=== PATIENT | female | born 2000 | race Caucasian/White ===

== ENCOUNTER 2023-12-11 14:15 | Inpatient (IN) | payer OTHER ==
[2023-12-11] MEDS: ELECTROLYTE-148 SOLN 1,000 ML IV SCH (14:30)
[2023-12-11] MEDS: AMPICILLIN SODIUM 2 GM VIAL IVPB ONE (14:35)
[2023-12-11] MEDS ORDERED: AMPICILLIN SODIUM 2 GM VIAL ONE (16:32)
[2023-12-11 16:57] VITALS: BMI 30.8
[2023-12-11 17:30] LABS: BASO % 0.4 % (0-2.0); EOS % 0.4 % (0-4.5); HEMATOCRIT 38.7 % (32.4-45.2); HEMOGLOBIN 12.6 GM/dL (10.7-15.3); LYMPH % 18.1 % (8-40); MCH 28.5 pg (25.7-33.7); MCHC 32.4 g/dl (32.0-36.0); MEAN CELL VOLUME 87.8 fl (80-96); MONO % 9.8 % (3.8-10.2); NEUT % 71.3 % (42.8-82.8); PLATELET COUNT 222 10^3/uL (134-434); RBC 4.41 M/mm3 (3.60-5.2); RDW 18.5 % (11.6-15.6); WHITE BLOOD COUNT 7.7 K/mm3 (4.0-10.0)
[2023-12-11 17:48] LABS: INR 0.86 (0.83-1.09); PROTHROMBIN TIME (PATIENT) 9.9 SEC (9.7-13.0)
[2023-12-11 17:51] LABS: ACTIVATED PTT 27.6 SECONDS (25.2-36.5)
[2023-12-11 18:21] LABS: CALCIUM 9.4 mg/dL (8.5-10.1)
[2023-12-11 18:22] LABS: BLOOD UREA NITROGEN 11.1 mg/dL (7-18)
[2023-12-11 18:25] LABS: CREATININE 0.6 mg/dL (0.55-1.3)
[2023-12-11] MEDS: AMPICILLIN - 1 GM in SODIUM CHLORIDE 100 ML IVPB SCH (18:40)
[2023-12-11] MEDS ORDERED: AMPICILLIN SODIUM 1 GM VIAL ONE ×2 (18:47→22:32)
[2023-12-11 19:16] LABS: HIV INTERPRETATION NEGATIVE (NEGATIVE)
[2023-12-11] MEDS ORDERED: PROMETHAZINE HCL 25 MG/1 ML VIAL ONE (21:03)
[2023-12-11] MEDS ORDERED: BUTORPHANOL TARTRATE 2 MG/ML VIAL ONE (21:03)
[2023-12-11] MEDS: BUTORPHANOL TARTRATE 2 MG/ML VIAL IVPB ONE (21:09)
[2023-12-11] MEDS: PROMETHAZINE HCL 25 MG/1 ML VIAL IVPB ONE (21:09)
[2023-12-12] MEDS ORDERED: FENTANYL/BUPIVACAINE/NS/PF - PCEA - 50 ML DISP.SYRIN EP ONE ×4 (02:02→15:57)
[2023-12-12] MEDS: FENTANYL/BUPIVACAINE/NS/PF - PCEA - 50 ML DISP.SYRIN EP SCH (02:35)
[2023-12-12] MEDS ORDERED: NALOXONE HCL 0.4 MG/ML VIAL IVPUSH PRN (02:40)
[2023-12-12 05:05] VITALS: RESP 18
[2023-12-12] MEDS ORDERED: AMPICILLIN SODIUM 1 GM VIAL ONE ×4 (06:06→14:13)
[2023-12-12] MEDS ORDERED: BUPIVACAINE HCL/PF 0.25% (2.5MG/ML) 10 ML VIAL ONE (09:11)
[2023-12-12] MEDS ORDERED: OXYTOCIN 30 UNITS in 0.9% NS 30 UNIT/500 ML INFUS.BAG IVPB ONE (13:04)
[2023-12-12] MEDS ORDERED: OXYTOCIN 20 UNITS in 0.9% NS 20 UNIT/1,000 ML INFUS.BAG IV ONE (13:05)
[2023-12-12] MEDS: OXYTOCIN 30 UNITS in 0.9% NS 30 UNIT/500 ML INFUS.BAG IVPB SCH (13:30)
[2023-12-12] MEDS ORDERED: LIDOCAINE HCL 1% PRESERVATIVE FREE - 30ML VIAL ONE (17:27)
[2023-12-12] MEDS: OXYTOCIN 20 UNITS in 0.9% NS 20 UNIT/1,000 ML INFUS.BAG IV SCH (17:30)
[2023-12-12] MEDS ORDERED: WITCH HAZEL 50% (TUCKS) 40 PAD/JAR PAD TP PRN (17:55)
[2023-12-12] MEDS ORDERED: BISACODYL 10 MG SUPP.RECT RC PRN (17:55)
[2023-12-12] MEDS ORDERED: METHYLERGONOVINE MALEATE 0.2 MG/1 ML AMP IM PRN (17:55)
[2023-12-12] MEDS ORDERED: ACETAMINOPHEN 325 MG TABLET (FP) PO PRN (17:55)
[2023-12-12] MEDS ORDERED: BENZOCAINE 28 GM HEMORRHOIDAL OINTMENT TP PRN (17:55)
[2023-12-12] MEDS ORDERED: oxyCODONE HCL 5 MG TABLET PO PRN (17:55)
[2023-12-12] MEDS ORDERED: IBUPROFEN 600 MG TABLET (FP) PO ONE (19:52)
[2023-12-12] MEDS: IBUPROFEN 600 MG TABLET (FP) PO PRN (19:54)
[2023-12-13] MEDS: BENZOCAINE 20% 57 GM BOTTLE TP PRN (00:30)
[2023-12-13 07:49] LABS: BASO % 0.5 % (0-2.0); HEMATOCRIT 33.1 % (32.4-45.2); HEMOGLOBIN 10.9 GM/dL (10.7-15.3); LYMPH % 17.9 % (8-40); MCHC 33.1 g/dl (32.0-36.0); MEAN CELL VOLUME 87.6 fl (80-96); MEAN PLT VOLUME 10.2 fl (7.5-11.1); MONO % 11.5 % (3.8-10.2); NEUT % 69.1 % (42.8-82.8); PLATELET COUNT 175 10^3/uL (134-434); RBC 3.78 M/mm3 (3.60-5.2); RDW 18.7 % (11.6-15.6); WHITE BLOOD COUNT 10.3 K/mm3 (4.0-10.0)
[2023-12-13] MEDS: FERROUS SO4 325 MG TABLET (FP) PO SCH (09:11)
[2023-12-13] MEDS: PRENATAL VITAMINS W/ FOLIC ACID TABLET (FP) PO SCH (09:11)
[2023-12-13] MEDS: DIPHTH,PERTUSS(ACELL),TET 0.5 ML DISP.SYRIN IM ONE (21:44)
[2023-12-13] MEDS ORDERED: SENNOSIDES/DOCUSATE COMBO (SENNA PLUS) TABLET (UD) PO PRN (22:00)
[2023-12-14 09:00] VITALS: BP 128/81; PULSE 75; TEMP 98.1
== END 2023-12-14 16:25 | disposition home or self-care (01) | DRG 560 ==
LOC: JLDR 14:15 → J3W 12-12 22:50
PROVIDERS: ADMIT Obstetrics & Gynecology; ATTEND Obstetrics & Gynecology
PROC: 10E0XZZ Delivery of Products of Conception, External Approach (ICD-10-PCS; principal; 2023-12-12)
DX: O80 Encounter for full-term uncomplicated delivery (principal); Z3A.38 38 weeks gestation of pregnancy; Z37.0 Single live birth
CPT/HCPCS: 36415; 59409; 80048; 85025; 85610; 85730; 86780; 86803; 86850; 86900; 86901; 87389; 90715